=== PATIENT | female | born 1960 | race Caucasian/White ===

== ENCOUNTER 2018-06-26 11:07 | Inpatient (IN) ==
[2018-06-26] MEDS ORDERED: *HR* Remifentanil 1 MG VIAL IVP ONE ×2 (11:24→16:18)
[2018-06-26] MEDS ORDERED: *HR* Phenylephrine 10 MG/ML VIAL ONE (11:28)
[2018-06-26] MEDS ORDERED: NiCARdipine 2.5 MG/10 ML Syringe IVPB ONE (11:36)
--- NOTE | 2018-06-26 11:37 | History & Physical Report ---
Date of Encounter: 06/26/18 Time of Encounter: 11:36 24 Hour HP Update - Instructions Instructions: If the History and Physical is less than 30 days old and was completed prior to A.M. admission and or procedure and has NOT been updated on calendar day of procedure please complete this update prior to performing procedure. - Update Patient reports changes in Medical Condition: No Changes in examination, assessment, or condition: No Changes in Medication: No Preop tests/diagnostics Reviewed: Yes Surgery Remains Indicated: Yes Consent for Planned Operative Procedure(s) Verified: Yes - Pre-Operative Checklist Preoperative Checklist Indicated: Yes Prophylactic Antibiotic Ordered: Yes Home Medications Include Beta Alexsander: Yes Beta Alexsander Taken Today (Day of Surgery): Yes Beta Alexsander Taken Yesterday (Day Prior to Surgery): Yes Is VTE Prophylaxis Indicated?: Yes
--- NOTE | 2018-06-26 12:03 | Anesthesia Evaluation PreOp ---
Date of Encounter: 06/26/18 Time of Encounter: 12:01 - Past History Planned Operation: Left Carotid Endarterectomy Cardiac History: Denies any Significant Hx, HTN, Hyperlipidemia, Cardiac Stent Pulmonary History: Smoker (1/2 ppd x 20 years), Asthma, COPD Other Medical History: Hepatic (Fatty Liver), Thyroid (Hypo), Other (leukocytosis, thrombocytosis, and polycythemia.) Anesthesia History: No Prior Anesthetic Complications, Past Anesthesia (Appendectomy-open Tubal ligation 1982 Cyst-groin, Vein stripping) : No Alcohol Use: none Drug use: none Medications and Allergies Albuterol Sulfate [Albuterol Inhaler] 2 puff IH Q4HR 05/15/15 [History] Aspirin Enteric Coated [Aspirin EC] 81 mg PO DAILY 05/15/15 [History] Atorvastatin Calcium [Lipitor] 80 mg PO DAILY 05/15/15 [History] Budesonide/Formoterol 160/4.5 [Symbicort] 2 puff IH BID 05/15/15 [History] Clopidogrel [Plavix] 75 mg PO DAILY 05/15/15 [History] Levothyroxine [Synthroid] 100 mcg PO DAILY 05/15/15 [History] Metformin HCl [Fortamet] 500 mg PO Q24H 05/15/15 [History] Metoprolol Brown/Hydrochlorothiaz [Dutoprol 25-12.5 mg Tablet] 25 mg PO Q24H 05/15/15 [History] Nitroglycerin [Nitrostat] 0.4 mg SL Q5-6MIN PRN 05/15/15 [History] Omeprazole [PriLOSEC] 20 mg PO DAILY 05/15/15 [History] Acetaminophen [Tylenol] 1,000 mg PO Q6HR PRN #90 tablet 04/26/16 [Rx] Allergy/AdvReac Type Severity Reaction Status Date / Time No Known Allergies Allergy Verified 05/15/15 14:44 - Meds/Allergy Pre-op Review Medications Reviewed: Yes Allergies Reviewed: Yes Beta Blockers on Current Med List: Yes If Beta Blockers taken, Date/Time (Last Dose taken): metoprolol 25 po now Anesthesia Results - Labs Laboratory Tests 06/20/18 06/20/18 06/20/18 14:04 14:04 14:04 WBC 11.8 H Hgb 13.9 Hct 41.5 Plt Count 422 H INR 1.0 Sodium 137 Potassium 3.7 Chloride 102 Carbon Dioxide 26 BUN 16 Creatinine 0.75 06/01/17 Stress EF-70% No Ischemia Test Date: 2017-08-25 P PROCEDURES PERFORMED: SP.PFT before and after bronchodilator [pftp1] SP.PFT DLCO [pftp4] SP.PFT n2 wash out lung volume [pftp6] INTERPRETATION: Spirometry shows moderate airway restrictive disease. Following Bronchodilator, there is improvement in FVC by 10%. Following Bronchodilator, there is significant improvement in FEV1 by 12%. Increased residual Lung Volumes reveal hyperinflation and air trapping. Diffusion Capacity is normal. Flow Volume Loop: Obstructive Electronically Signed On 08-25-2017 20:52:08 EST by Mildred Kern - Imaging EKG: report reviewed (SR) Anesthesia Exam O2 Sat Height 1.5 m Height 1.5 m Weight 62.596 kg Weight 62.596 kg O2 Sat by Pulse Oximetry 93 Vital Signs Temp Pulse Resp BP Pulse Ox 98.7 F 71 18 103/55 93 06/26/18 11:38 06/26/18 11:38 06/26/18 11:38 06/26/18 11:38 06/26/18 11:38 NPO (# of Hours): > 8 hrs Pain Scale: 0 Pain Scale Used: Numeric (1 - 10) - HEENT Pupil (Motor): Pupils equal, EOMI Mallampati: III Teeth: Poor dentition Oral Opening: Greater than 3 - BUSINESS OPERATIONS CONSULTANT LOC: Oriented BUSINESS OPERATIONS CONSULTANT Motor: Normal RUE, Normal LUE, Normal RLE, Normal LLE, Normal Face BUSINESS OPERATIONS CONSULTANT Sensory: Normal: RUE, LUE, RLE, LLE, Face - Cardiac Rhythm: Regular Murmur: None JVD: No Carotid Bruit: No - Pulmonary Breath Sounds: bilateral Clear Respiratory Effort: Symmetrical Anesthesia Assess/Plan ASA Score: 3 Modified Traci Scale for Level of Consciousness: Cooperative, oriented, and tranquil Anesthetic Plan: General Autologous Blood: Yes Monitoring Plan: Standard Monitors, A-Line Recovery Plan: PACU
[2018-06-26] MEDS ORDERED: Albuterol 2.5 MG/3 ML NEBULIZER IH ONE (12:16)
[2018-06-26] MEDS ORDERED: CeFAZolin Syr 2,000MG/20 ML 2,000 MG/20 ML SYRINGE IVPB ONE (12:16)
[2018-06-26] MEDS ORDERED: Ringers Solution, Lactated 1,000 ML IVC SCH (12:30)
[2018-06-26] MEDS ORDERED: *HR* Rocuronium Bromide 50 MG/5 ML VIAL ONE (12:43)
[2018-06-26] MEDS ORDERED: *HR* Succinylcholine 200 MG/10 ML VIAL IVP ONE (12:43)
[2018-06-26] MEDS ORDERED: Lidocaine -MPF 2% 2 ML VIAL ONE (12:43)
[2018-06-26] MEDS ORDERED: Lidocaine -MPF 4% 5 ML AMPUL ONE (12:43)
[2018-06-26] MEDS ORDERED: *HR* FentaNYL (PF) 100 MCG/2 ML VIAL ONE ×2 (12:43→12:44)
[2018-06-26] MEDS ORDERED: *HR* Propofol 200 MG/20 ML VIAL IVP ONE (12:44)
[2018-06-26] MEDS ORDERED: *HR* Midazolam HCl 2 MG/2 ML VIAL ONE (12:44)
[2018-06-26] MEDS ORDERED: ceFAZolin 1,000 MG, Sodium Chloride IRRigation 1,000 ML IR ONE (12:55)
[2018-06-26] MEDS ORDERED: Heparin 1,000 UNITS/500 mL 500 ML ONE (14:07)
[2018-06-26] MEDS ORDERED: Lidocaine 1% 20 ML MDV ONE (14:07)
[2018-06-26] MEDS ORDERED: *HR* Morphine 2 MG/ML SYRINGE IVP PRN (15:12)
[2018-06-26] MEDS ORDERED: Ondansetron 4 MG/2 ML VIAL IVP ONE (15:12)
[2018-06-26] MEDS ORDERED: *HR* Meperidine 25 MG/ML SYRINGE IVP PRN (15:12)
[2018-06-26] MEDS ORDERED: *HR* OxyCODONE Immed Rel 5 MG TABLET PO PRN (15:12)
[2018-06-26] MEDS ORDERED: *HR* Promethazine 25 MG/ML VIAL IVP PRN (15:12)
--- NOTE | 2018-06-26 15:15 | Anesthesia Procedures ---
Date of Encounter: 06/26/18 Time of Encounter: 14:35 Procedures: Anesthesia - Arterial Line Consent obtained: verbal consent Time out performed: Yes Sedation: Versed (mg): 2 Sedation: Fentanyl (mcg): 50 Size (Gauge): 18 Length (inches): 1 3/4 Technique Used: sterile prep, guide wire technique Post-Procedure: line taped into place, dry sterile dressing placed Patient tolerated procedure: well, no complications Complications: none Site: Radial R
[2018-06-26] MEDS ORDERED: Ondansetron 4 MG/2 ML VIAL ONE (15:38)
[2018-06-26] MEDS ORDERED: Dexamethasone 4 MG/ML VIAL ONE (15:38)
--- NOTE | 2018-06-26 17:39 | Operative Note ---
Date of procedure: 06/26/18 Pre-op diagnosis: left carotid stenosis Post-op diagnosis: same Procedure: left carotid endarterectomy without shunt and bovine patch angioplasty Complications: none Anesthesia: GETA Surgeon: Nino Huston Was there an payroll assistant present: No Estimated blood loss (cc): 150 Specimen: 0 Condition: stable Disposition: PACU Procedure in Detail: History Imelda Phillips is a 58-year-old white female who was seen in the vascular surgery clinic due to an abnormal carotid duplex scan. This led to an angiogram which confirmed the finding of a critical stenosis of the left internal carotid artery. The patient comes to the operating room for correction of this lesion. Procedure After informed consent was obtained the patient was taken to the operating room. General endotracheal anesthesia was established. An arterial line was placed. The left neck was then sterilely prepped and draped. A timeout protocol was observed. A transverse incision was made on the left neck in a skin crease. Dissection was carried down to reveal the carotid bifurcation. Dissection was made of the vessels and selective control was obtained. 5000 it's heparin were administered intravenously. After 3 minute delay the vessels were clamped with the internal carotid artery clamped first. An 11 blade knife and Vernon scissors were used to open the artery. The artery was very dense and thick and it was difficult to cut the artery opened with the Vernon scissors. An 8 Y[place] shunt was then placed and patency was confirmed with use of intraoperative Doppler. The plaque was found to be very calcified at the orifice of the internal carotid artery. There is no finding of intramural hemorrhage. The endarterectomy was begun at the distal common carotid artery. It was then carried proximally and distally. The amount of disease present was greater than that depicted on the angiogram in the sense that it extended both proximally and distally for quite some area and required significant effort in order to remove this plaque. Because of the skin crease incision the exposure to the proximal vessel was limited. In order to safely accomplish this the shunt actually needed to be removed so that further retraction could be made and the arteriotomy was carried more proximally and the proximal clamp was also placed more proximally. With this done and appropriate end point could be found and a complete endarterectomy performed. The bed of the vessel was inspected for any residual debris. A bovine pericardial patch angioplasty was then performed. This was sewn into position using 2 6-0 Prolene sutures. Leaving a small space open on the suture line the internal carotid was allowed to backflush. The internal was then reclamped and the external and common were opened and finally the internal carotid artery was reopened. The patient had no hemodynamic distress with this maneuver. Excellent pulsation and Doppler signals were identified throughout the carotid system. Hemostasis was achieved. Marcaine was infiltrated in the wound to achieve a sup erficial cervical block. The wound was copiously irrigated with antibiotic containing solution and then closed in layers using absorbable suture. There were no intraoperative complications. The patient was extubated in the operating room. She was found to be neurologically intact. She was taken from the operating room to the recovery room in stable condition.
[2018-06-26] MEDS ORDERED: traMADol 50 MG TABLET PO PRN (18:32)
[2018-06-26] MEDS ORDERED: Ondansetron 4 MG/2 ML VIAL IVP PRN (18:32)
[2018-06-26] MEDS ORDERED: Acetaminophen 325 MG TABLET PO PRN (18:32)
[2018-06-26] MEDS ORDERED: Naloxone 0.4 MG/ML INJ IVP PRN (18:32)
[2018-06-26] MEDS ORDERED: *HR* Labetalol 20 MG/4 ML SYRINGE IVP PRN (18:32)
[2018-06-26] MEDS ORDERED: *HR* HYDROcodone/Acet 5/325 mg TABLET PO PRN (18:32)
[2018-06-26] MEDS: Budesonide/Formoterol 160/4.5 1 PUFF INH IH SCH (20:39)
[2018-06-27 03:48] LABS: Basophils % 0.2 %; Hematocrit 38.4 % (35.3-44.9); Hemoglobin 12.5 g/dL (11.5-15.4); Immature Granulocytes % 0.5 % (0-4); Lymphocytes # 1.8 K/mcL (0.6-4.6); Lymphocytes % 11.8 %; Mean Corpuscular HGB Conc 32.6 g/dL (31.6-35.5); Mean Corpuscular Hemoglobin 29.5 pg (28.0-33.3); Mean Corpuscular Volume 90.6 fL (83.0-100.0); Mean Platelet Volume 10.3 fL (9.4-12.4); Monocytes # 0.8 K/mcL (0.0-1.3); Monocytes % 5.2 %; Neutrophils # 12.8 K/mcL (1.6-8.9); Platelet Count 312 K/mcL (140-400); Red Blood Count 4.24 M/mcL (3.82-4.97); Red Cell Distribution Width 13.2 % (11.5-14.5); Segmented Neutrophils % 82.3 %
[2018-06-27 04:06] LABS: BUN/Creatinine Ratio 26 (6-26); Blood Urea Nitrogen 18 mg/dL (6-20); Carbon Dioxide 27 mEq/L (23-29); Chloride 105 mEq/L (98-107); Glucose 135 mg/dL (70-105); Osmolality,Calculated 294 (280-300); Potassium 3.9 mEq/L (3.5-5.1); Sodium 140 mEq/L (136-145); eGFR For Non-African Americans > 60 (> 60)
[2018-06-27] MEDS ORDERED: *HR* Metformin 500 MG TABLET PO SCH (09:00)
[2018-06-27] MEDS ORDERED: Lisinopril 20 MG TABLET PO SCH (09:00)
[2018-06-27] MEDS ORDERED: Metoprolol XL (24 HR) Succ 25 MG TAB.ER.24H PO SCH (09:00)
[2018-06-27] MEDS ORDERED: Aspirin 81 MG TAB.CHEW PO SCH (09:00)
[2018-06-27] MEDS: Budesonide/Formoterol 160/4.5 1 PUFF INH IH SCH (09:25)
[2018-06-27 11:18] VITALS: BP 117/44
--- NOTE | 2018-06-27 12:38 | Discharge Summary ---
Date of Encounter: 06/27/18 Time of Encounter: 12:36 - Discharge Diagnosis (1) Carotid artery stenosis Priority: Primary Status: Acute Comments: Patient was found to have asymptomatic carotid bruit. Workup revealed critical stenosis. Patient underwent left carotid endarterectomy during this hospitalization. Qualifiers: Laterality: left Qualified Code(s): I65.22 - Occlusion and stenosis of left carotid artery (2) COPD (chronic obstructive pulmonary disease) Priority: Secondary Status: Chronic Comments: Patient has chronic COPD Qualifiers: COPD type: unspecified COPD Qualified Code(s): J44.9 - Chronic obstructive pulmonary disease, unspecified (3) Type 2 diabetes mellitus Priority: Secondary Status: Chronic Comments: Patient has chronic diabetes Qualifiers: Diabetes mellitus termination clerk insulin use: without long-term use Diabetes mellitus complication status: without complication Qualified Code(s): E11.9 - Type 2 diabetes mellitus without complications - Hospital Course Hospital course: Ms. Phillips is a 58 year old female With an asymptomatic left carotid bruit. Workup revealed a critical stenosis. The patient was admitted for left carotid endarterectomy. This was performed under general endotracheal anesthesia. The patient had no periprocedural complications. The patient was felt that for discharge on the afternoon of postoperative day #1. Instructions were given in regards to her diet and medications and wound care. All questions were answered. - Time Spent with Patient Total time spent providing and/or coordinating discharge services: - Discharge Medications Prescriptions: HYDROcodone/Acet 5/325 mg [[place] 5-325 mg] 1 tab PO Q6HR PRN 7 Days #7 tablet PRN Reason: Moderate Pain Home Medications: Albuterol Sulfate [Ventolin Hfa] 2 puff IH Q4-6H PRN 06/26/18 [History] Aspirin 81 mg PO DAILY 06/26/18 [History] Budesonide/Formoterol 160/4.5 [Symbicort 160/4.5] 2 puff IH BIDR 06/26/18 [History] Chlorthalidone 12.5 mg PO DAILY 06/26/18 [History] DULoxetine [Cymbalta] 30 mg PO DAILY 06/26/18 [History] Levothyroxine [Synthroid] 88 mcg PO 0630 06/26/18 [History] Lisinopril [Zestril] 40 mg PO DAILY 06/26/18 [History] Metformin HCl [Metformin HCl ER] 1,000 mg PO QAM 06/26/18 [History] Metoprolol XL (24 HR) Succ [Toprol Xl] 25 mg PO DAILY 06/26/18 [History] Pantoprazole Sodium [Protonix] 40 mg PO DAILY 06/26/18 [History] Rosuvastatin [Crestor] 40 mg PO HS 06/26/18 [History] Tramadol HCl [Ultram] 50 mg PO BID PRN 06/26/18 [History] HYDROcodone/Acet 5/325 mg [[place] 5-325 mg] 1 tab PO Q6HR PRN 7 Days #7 tablet 06/27/18 [Rx] Allergies/Adverse Reactions: Allergy/AdvReac Type Severity Reaction Status Date / Time No Known Allergies Allergy Verified 06/26/18 12:36 Date of admission: 06/26/18 18:29 Primary care physician: Jhon Cárdenas DO Consults: None Procedure(s) Performed: Left carotid endarterectomy with bovine pericardial patch angioplasty Discharging clinician: Nino Huston Anticipated date of discharge: 06/27/18 Exam Vital Signs, Last 4 Hours Temp Pulse Resp BP Pulse Ox 06/27/18 11:15 98.7 F 77 16 117/44 98 06/27/18 09:25 18 97 General: Present: Conversant, No Apparent Distress, Well developed, Well nourished HEENT: Present: Atraumatic, Normocephaly, Trachea midline, Pupils equal Neck: Absent: JVD, Midline deformity, Tracheal deviation Cardiac: Present: Reg Rate and Rhythm, Normal S1 and S2 Lungs: Present: Normal Breath Sounds Neuro: Present: Alert and responsive, No focal deficits noted, Cranial nerves grossly intact, Motor nerves grossly intact, Sensory nerves grossly intact Vascular: Present: Normal capillary refill, Surgical incisions (Left neck incision is clean and dry. No ecchymosis. No hematoma.) Skin: Present: No rashes noted on visualized skin - Patient Status Disposition: Home, Self-Care Condition: Good Functional capacity at discharge: independent ambulation Overall status at discharge: patient is progressing back to baseline - Discharge Instructions Follow Up With: Jhon Cárdenas DO [Primary Care Provider] - 07/03/18 3:00 pm Nino Huston MD [Partnered Physician] - 07/19/18 1:30 pm Additional Instructions: Keep left neck incision dry for a total of 5 days following surgery Use ice pack on left neck for the next 2 days Using sent of spirometer for the next 2 weeks 10 times an hour while awake area after 2 weeks dispose of incentive spirometer. No driving. No lifting greater than 10 pounds. No manual labor. Patient may walk inside or outside. Patient may use stairs as tolerated. Resume usual home medications - Diet and Activity Activity: as per physical therapy, increase activity as tolerated Diet: diabetic diet
[2018-06-27] MEDS ORDERED: Chloraseptic Spray 177 ML BOTTLE MM PRN (13:00)
== END 2018-06-27 16:04 | disposition home or self-care (01) | DRG 24 ==
LOC: SAMDAY 11:07 → 2NNU 18:29
PROVIDERS: ADMIT Surgery Vascular Surgery; ATTEND Surgery Vascular Surgery

== ENCOUNTER 2019-01-02 13:25 | Observation (INO) ==
[2019-01-02 15:08] LABS: Basophils # 0.1 K/mcL (0.0-0.2); Basophils % 0.8 %; Eosinophils # 0.2 K/mcL (0.0-0.6); Eosinophils % 1.4 %; Hematocrit 45.1 % (35.3-44.9); Hemoglobin 14.7 g/dL (11.5-15.4); Immature Granulocytes % 0.6 % (0-4); Lymphocytes # 4.7 K/mcL (0.6-4.6); Lymphocytes % 35.7 %; Mean Corpuscular HGB Conc 32.6 g/dL (31.6-35.5); Mean Corpuscular Hemoglobin 29.3 pg (28.0-33.3); Mean Platelet Volume 10.4 fL (9.4-12.4); Monocytes # 1.1 K/mcL (0.0-1.3); Neutrophils # 7.1 K/mcL (1.6-8.9); Platelet Count 392 K/mcL (140-400); Red Blood Count 5.01 M/mcL (3.82-4.97); Segmented Neutrophils % 53.5 %
[2019-01-02 15:13] LABS: INR 0.9; Prothrombin Time 10.6 Seconds (9.4-12.1)
[2019-01-02 15:16] LABS: Activated Partial Thrombo Time 35.5 Seconds (26.0-36.0)
[2019-01-02] MEDS ORDERED: Nitroglycerin 0.4 MG TAB.SUBL SL PRN (15:25)
[2019-01-02] MEDS ORDERED: Aspirin 325 MG TABLET PO ONE (15:25)
--- NOTE | 2019-01-02 15:28 | Emergency Department Note ---
Disposition Clinical Impression: Hypokalemia, History of coronary artery disease, Tobacco use Chest pain Qualifiers: Chest pain type: unspecified Qualified Code(s): R07.9 - Chest pain, unspecified Disposition: Admitted As Inpatient Condition: Fair Time of Disposition: 15:55 General Adult HPI - General Chief complaint: ED Extremity Problem,Nontraumatic Stated complaint: Left arm pain x 1week Time Seen by Provider: 01/02/19 15:00 Source: patient, EMS Mode of arrival: ambulatory Limitations: no limitations Nursing Notes Reviewed: Yes Vital Signs Reviewed: Yes - History of Present Illness HPI Narrative: 58-year-old female history of hypertension, CAD with stent presents for evaluation from cardiology for concerns of left arm pain. Patient states she has had intermittent pain in the left arm that is described as squeezing. States that it feels that somebody squeezing around her chest. No nausea. No vomiting. Patient states she does have episodes of sweating which she attributed to menopause. No fevers or cough. No dyspnea. Patient states that she is in the process of getting set up for an outpatient stress test. She has not had any provocative testing since 2017. No abdominal pain. Pain Scale: 4 - Related Data Home Medications Medication Instructions Recorded Confirmed Albuterol Sulfate [Ventolin Hfa] 2 puff IH Q4-6H PRN 06/26/18 06/26/18 Aspirin 81 mg PO DAILY 06/26/18 06/26/18 Budesonide/Formoterol 160/4.5 2 puff IH BIDR 06/26/18 06/26/18 [Symbicort 160/4.5] Chlorthalidone 12.5 mg PO DAILY 06/26/18 06/26/18 DULoxetine [Cymbalta] 30 mg PO DAILY 06/26/18 06/26/18 Levothyroxine [Synthroid] 88 mcg PO 0630 06/26/18 06/26/18 Lisinopril [Zestril] 40 mg PO DAILY 06/26/18 06/26/18 Metformin HCl [Metformin ER 1,000 mg PO QAM 06/26/18 06/26/18 Gastric] Metoprolol XL (24 HR) Succ [Toprol 25 mg PO DAILY 06/26/18 06/26/18 Xl] Pantoprazole Sodium [Protonix] 40 mg PO DAILY 06/26/18 06/26/18 Rosuvastatin [Crestor] 40 mg PO HS 06/26/18 06/26/18 Tramadol HCl [Ultram] 50 mg PO BID PRN 06/26/18 06/26/18 Allergies Allergy/AdvReac Type Severity Reaction Status Date / Time No Known Allergies Allergy Verified 06/26/18 12:36 All systems ED: reviewed and negative except as stated. Constitutional: Denies: fever Cardiovascular: Reports: chest pain. Denies: palpitations Respiratory: Denies: cough, dyspnea Gastrointestinal: Denies: abdominal pain, nausea, vomiting Past Medical History - Past Medical History Source: patient Medical history: Reports: asthma, COPD, hyperlipidemia, hypertension, thyroid disease Surgical history: Reports: appendectomy, other Psychiatric history: Reports: no psych history - Social History Smoking Status: Current every day smoker Smokeless Tobacco Status: No Alcohol use: Reports: none Drug use: Reports: none Physical Exam - General Limitations: no limitations General appearance: alert, in no apparent distress - Head Head exam: atraumatic, normocephalic, normal inspection - Eye Eye exam: Present: normal appearance - ENT ENT exam: normal exam - Neck Neck exam: Present: normal inspection - Chest Chest inspection: Present: normal inspection, symmetric chest wall rise. Absent: tenderness, rash - Respiratory Respiratory exam: Present: prolonged expiratory phase. Absent: respiratory distress - Cardiovascular Cardiovascular exam: Present: regular rate, normal rhythm. Absent: normal heart sounds - Abdominal Exam Abdominal exam: Present: soft, Non-Tender - Extremities Exam Extremities exam: Present: normal inspection - Expanded Upper Extremity Exam Shoulder exam: Present: normal inspection, full ROM. Absent: tenderness Arm exam: Present: normal inspection, full ROM. Absent: tenderness Elbow exam: Present: normal inspection, full ROM. Absent: tenderness - Expanded Lower Extremity Exam Neurovascular/Tendon exam: Present: normal capillary refill - Back Exam Back exam: Present: normal inspection - Neurological Exam Neurological exam: Present: alert, oriented X3, CN II-XII intact - Skin Skin exam: Present: warm, dry, intact, normal color Course Course Narrative: Patient seen and examined. Patient will get basic cardiopulmonary screening evaluation. Concerns for ACS. Disposition pending. - Reevaluation(s) Reevaluation #1: Patient seen and examined. Patient's resting. Patient does have EKG changes based on her recent EKG. Given EKG changes with the patient's concerning history sent by the third rail installer. Patient will be admitted for serial troponins likely provocative testing. Time: 15:54 Reevaluation #2: Patient's pain improved after nitro. Time: 16:12 Vital Signs Temperature 98.5 F 01/02/19 13:33 Pulse Rate 75 01/02/19 13:33 Respiratory Rate 18 01/02/19 13:33 Blood Pressure 119/75 01/02/19 13:33 O2 Sat by Pulse Oximetry 94 01/02/19 13:33 Temperature 98.5 F 01/02/19 13:33 Pulse Rate 72 01/02/19 16:02 Respiratory Rate 16 01/02/19 16:02 Blood Pressure 99/59 01/02/19 16:02 O2 Sat by Pulse Oximetry 95 01/02/19 16:02 Oxygen Delivery Oxygen Delivery Room Air Medical Decision Making - MDM Narrative Medical decision making narrative: Patient presented for concerns of arm pain and chest pains and by cardiology. Patient had intermittent symptoms over the past week. Does have known coronary disease. Patient has had diaphoresis. Patient describing a squeezing sensation in her chest. Patient does have EKG changes based on her prior EKG. Patient does have a concerning history in is high risk. Patient's been attempting to get scheduled for outpatient provocative testing. Given the patient's symptoms over prolonged. Will admit the patient for serial troponins and anticipated provocative testing. Patient's agreeable with this plan of care. - Lab Data Lab results reviewed: Yes I reviewed the patient's lab results. Result diagrams: 01/02/19 14:19 01/02/19 14:19 Lab Results 01/02/19 01/02/19 01/02/19 Range/Units 14:19 14:19 14:19 WBC 13.2 H (4.3-11.1) K/mcL RBC 5.01 H (3.82-4.97) M/mcL Hgb 14.7 (11.5-15.4) g/dL Hct 45.1 H (35.3-44.9) % MCV 90.0 (83.0-100.0) fL MCH 29.3 (28.0-33.3) pg MCHC 32.6 (31.6-35.5) g/dL RDW 14.0 (11.5-14.5) % Plt Count 392 (140-400) K/mcL MPV 10.4 (9.4-12.4) fL Immature Gran % 0.6 (0-4) % Seg Neutrophils % 53.5 % Lymphocytes % 35.7 % Monocytes % 8.0 % Eosinophils % 1.4 % Basophils % 0.8 % Neutrophils # 7.1 (1.6-8.9) K/mcL Lymphocytes # 4.7 H (0.6-4.6) K/mcL Monocytes # 1.1 (0.0-1.3) K/mcL Eosinophils # 0.2 (0.0-0.6) K/mcL Basophils # 0.1 (0.0-0.2) K/mcL PT 10.6 (9.4-12.1) Seconds INR 0.9 APTT 35.5 (26.0-36.0) Seconds Sodium 139 (136-145) mEq/L Potassium 3.2 L (3.5-5.1) mEq/L Chloride 103 (98-107) mEq/L Carbon Dioxide 27 (23-29) mEq/L BUN 20 (6-20) mg/dL Creatinine 0.69 (0.60-1.20) mg/dL Est GFR ( Amer) > 60 (> 60) Est GFR (Non-Af Amer) > 60 (> 60) BUN/Creatinine Ratio 29 H (6-26) Glucose 95 (70-105) mg/dL Calculated Osmolality 290 (280-300) Calcium 10.0 (8.6-10.3) mg/dL Troponin I < 0.03 (< 0.04) ng/mL - Radiology Data Radiology results reviewed: Yes I reviewed the patient's radiology results. Chest X-Ray 01/02/19 13:39 IMPRESSION: No acute cardiopulmonary disease. D/ / 01/02/2019 15:39:34 Jonh Ramos MD / mario Interpreting Provider: Jonh Ramos MD - EKG Data EKG #1 EKG attestation: Yes I reviewed and interpreted this EKG. EKG shows normal: sinus rhythm Rate: normal Rhythm: NSR [place]/QRS: normal ST segment depression in: II, III, aVF T wave inversions noted in: v1, v2, v3 When compared to previous EKG there are: changes noted Interpretation: nonspecific ST-T wave changes S.Rimma - Flex Situation: Demographics Background: Presenting Complaint Assessment: Vital Signs, Course and respsone to treatment, Patient/Family Expectation Recommendation: Barrier(s) to disposition, Recommendation based on pending studies, treatments, or consults SErin Report Given to: Dr. Deandre Mccord Repor Time: 16:09 Attestation Statement - Attestation Attestation: Resident Attestation: I examined this patient and my medical decision making was reviewed with the Resident Physician. I agree with the documented findings, disposition and treatment plan as described except to the extent set forth below. We independently had [id number] contact with the patient. Patient presenting to the emergency department from cardiology for further ev aluation. Patient with left arm pain. Patient's EKG reviewed with resident physician. Leonora ng. Symptoms relieved with nitroglycerin glycerin 1. Patient did have a drop to her blood pressure. No furtherglycerin will be given. Patient be admitted for further cardiac evaluation. This complaint but, no acute distress, regular rate and rhythm, clear to auscultation bilaterally, no significant swelling to the lower extremities.
[2019-01-02 15:37] LABS: BUN/Creatinine Ratio 29 (6-26); Blood Urea Nitrogen 20 mg/dL (6-20); Carbon Dioxide 27 mEq/L (23-29); Chloride 103 mEq/L (98-107); Glucose 95 mg/dL (70-105); Osmolality,Calculated 290 (280-300); Potassium 3.2 mEq/L (3.5-5.1); Sodium 139 mEq/L (136-145); Troponin I < 0.03 ng/mL (< 0.04); eGFR For Non-African Americans > 60 (> 60)
[2019-01-02] MEDS ORDERED: 0.9 % Sodium Chloride 500 ML IVC ONE (16:13)
[2019-01-02] MEDS ORDERED: Naloxone 0.4 MG/ML INJ IVP PRN (18:11)
[2019-01-02] MEDS ORDERED: Ondansetron 4 MG/2 ML VIAL IVP PRN (18:11)
[2019-01-02] MEDS ORDERED: Acetaminophen 325 MG TABLET PO PRN (18:11)
[2019-01-02] MEDS ORDERED: *HR* HYDROcodone/Acet 5/325 mg TABLET PO PRN (18:11)
[2019-01-02] MEDS ORDERED: D5% in Water 1,000 ML IVC PRN (18:14)
[2019-01-02] MEDS ORDERED: Dextrose Gel 15 GM/37.5 ML TUBE PO PRN ×2 (18:14)
[2019-01-02] MEDS ORDERED: *HR* Dextrose 50 % in Water (Syg) 50 ML SYRINGE IVP PRN (18:14)
--- NOTE | 2019-01-02 18:20 | Internal Med History&Physical ---
Date of Encounter: 01/02/19 Time of Encounter: 18:20 Internal Medicine - H&P: HPI Chief complaint: cp Admitted From: Emergency Dept Plans for Post Hospital Care: Home History of present illness: Ms. Phillips is a 58 year old female astragal history of hypertension CAD with stent placement 2013 LAD hyperlipidemia hypertension current smoker thyroid disease COPD left CEA in 2018 patient has been experiencing intermittent left arm squeezing for the past few days pain does radiate to her left chest. No shortness of breath no nausea no vomiting however she has been experiencing episodes of diaphoresis which she attributed to her menopause. She states that she does have a outpatient stress test scheduled and did see her primary care provider today who obtained EKG and was concerned advised her to go to the ER. The ER EKG was obtained which did show some ST depression in II, III, and F aVF. Patient was given nitroglycerin which did reduce her arm discomfort. Initial troponin was negative chest x-ray nothing acute lab work does show some hypokalemia which was replaced. She has been admitted for further work be evaluation of chest pain. Upon assessment patient continues to complain of 4 out of 10 arm squeezing. Patient obese started on heparin drip as well as nitroglycerin to control pain. Discussed treatment plan with the patient . Cardiology was consulted Past Med Surg Social Fam HX - Past Medical History Medical history: asthma, COPD, hyperlipidemia, hypertension, thyroid disease Additional medical history: CAD Psychiatric history: no psych history - Past Surgical History Surgical History: appendectomy, other Additional surgical history: heart stent 2014 x1. tubal ligation - Social History Smoking Status: Current every day smoker Smokeless Tobacco Status: No Alcohol use: none Drug use: none - Family History Mother Living Status: Age at : 62 Cause of : CAD status post CABG 2 days after CABG diagnosed in 50s Hx Family Cardiac Disorders: Yes Father Living Status: Age at : 65 Cause of : [place] CAD status post PCI Hx Family Cardiac Disorders: Yes Internal Medicine - H&P: Meds Albuterol Sulfate [Ventolin Hfa] 2 puff IH Q4-6H PRN 06/26/18 [History] Aspirin 81 mg PO DAILY 06/26/18 [History] Budesonide/Formoterol 160/4.5 [Symbicort 160/4.5] 2 puff IH BIDR 06/26/18 [History] Chlorthalidone 12.5 mg PO DAILY 06/26/18 [History] DULoxetine [Cymbalta] 30 mg PO DAILY 06/26/18 [History] Levothyroxine [Synthroid] 88 mcg PO 0630 06/26/18 [History] Lisinopril [Zestril] 40 mg PO DAILY 06/26/18 [History] Metformin HCl [Metformin ER Gastric] 1,000 mg PO QAM 06/26/18 [History] Metoprolol XL (24 HR) Succ [Toprol Xl] 25 mg PO DAILY 06/26/18 [History] Pantoprazole Sodium [Protonix] 40 mg PO DAILY 06/26/18 [History] Rosuvastatin [Crestor] 40 mg PO HS 06/26/18 [History] Tramadol HCl [Ultram] 50 mg PO BID PRN 06/26/18 [History] Allergy/AdvReac Type Severity Reaction Status Date / Time No Known Allergies Allergy Verified 06/26/18 12:36 All Systems PM: A 10-system review of systems was performed and is negative for pertinent findings except as documented above in the HPI. - Constitutional Constitutional: excessive sweating, no chills, no fever(s), no night sweats - EENT Eyes: no change in vision, no discharge, no pain, no photophobia Ears: no ear discharge, no ear pain, no tinnitus Nose, mouth and throat: no dysphagia, no nasal discharge, no neck pain, no sore throat - Cardiovascular Cardiovascular ROS IM: no chest pain, no diaphoresis, no dyspnea, no lightheadedness, no palpitations, no syncope Additional comments: Left arm squeezing - Respiratory Respiratory: no cough, no dyspnea, no wheezing, no excessive phlegm production - Gastrointestinal Gastrointestinal: no abdominal pain, no diarrhea, no hematemesis, no hematochezia, no melena, no nausea, no vomiting - Genitourinary Genitourinary: no change in urinary stream, no dysuria, no flank pain, no hematuria - Musculoskeletal Musculoskeletal ROS IM: no numbness, no tingling - Integumentary Integumentary IM: no rash, no unusual bruising - Neurological Neurological ROS: no confusion, no convulsions, no focal weakness, no numbness, no tingling, no tremor(s) - Hematologic/Lymphatic Hematologic/Lymphatic: no easy bruising - Constitutional Vitals: Temp Pulse Resp BP Pulse Ox 97.9 F 66 16 111/59 94 01/02/19 18:03 01/02/19 18:03 01/02/19 18:03 01/02/19 18:03 01/02/19 18:03 General appearance: Present: A&O X 3 Exam: . - Head Head exam: Present: atraumatic, normocephalic - Eye Eye exam: Present: PERRL, conjuntiva pink, sclera anicteric Pupils: Present: PERRL - Neck Neck exam general surgery: Present: supple, trachea midline. Absent: lymphadenopathy - Respiratory Respiratory exam: Present: CTAB, wheezes. Absent: accessory muscle use, rales, rhonchi Additional comments: Faint expiratory wheeze - Cardiovascular Cardiovascular exam: Present: RRR, +S1, +S2. Absent: diastolic murmur, gallop, rubs, systolic murmur - GI/Abdominal GI/Abdominal exam: Present: normal bowel sounds, soft, no peritoneal signs. Absent: distended, tenderness - Extremities Exam Extremities exam: Present: warm, radial pulses palpable and symmetrical. Absent: calf tenderness, cyanotic, pedal edema - Neurological Exam Neurological exam: Present: CN II-XII intact, oriented X3, no focal deficits. Absent: pronater drift, facial droop, speech deficit - Skin Skin exam: Present: dry, intact Internal Med - H&P Results - Labs CBC & Chem 7: 01/02/19 14:19 01/02/19 14:19 Labs: Short CBC 01/02/19 Range/Units 14:19 WBC 13.2 H (4.3-11.1) K/mcL Hgb 14.7 (11.5-15.4) g/dL Hct 45.1 H (35.3-44.9) % Plt Count 392 (140-400) K/mcL Neutrophils # 7.1 (1.6-8.9) K/mcL BMP 01/02/19 14:19 Sodium 139 Potassium 3.2 L Chloride 103 Carbon Dioxide 27 BUN 20 Creatinine 0.69 Glucose 95 Calcium 10.0 Cardiac Enzymes 01/02/19 Range/Units 14:19 Troponin I < 0.03 (< 0.04) ng/mL - EKG Data EKG shows normal: sinus rhythm - EKG Data Prior EKG available for review: yes When compared to previous EKG: there are significant changes Interpretation IM: suggestive of ischemia - Impressions ITS Impressions Chest X-Ray 01/02/19 13:39 IMPRESSION: No acute cardiopulmonary disease. D/ / 01/02/2019 15:39:34 Jonh Ramos MD / mario Interpreting Provider: Jonh Ramos MD - Assessment and Plan (1) Chest pain Current Visit: Yes Status: Acute Assessment and plan: Patient presented with 2 day history of left arm pain radiating to left chest associated symptoms of diaphoresis. Past history of CAD stent placement LAD- current smoker-family history of CAD mother post CABG, father from [place] both in their 60s -EKG does show some ST depression in 2- 3 aVF-she did have some relief of pain with nitroglycerin Initial troponin was negative we will continue to trend Continuous cardiac monitoring EKG in a.m. Continue aspirin and statin beta kike We will start on heparin drip Started on nitro drip Consult cardiology Nothing by mouth after midnight Cardiac echo Qualifiers: Chest pain type: unspecified Qualified Code(s): R07.9 - Chest pain, unspecified (2) History of coronary artery disease Current Visit: Yes Status: Acute (3) Hypokalemia Current Visit: Yes Status: Acute Assessment and plan: Replace and monitor (4) Tobacco use Current Visit: Yes Status: Acute Assessment and plan: Advised patient to stop smoking (5) Carotid artery stenosis Current Visit: No Status: Acute Assessment and plan: History of carotid stenosis did have a left CEA in June 2018 Continue with aspirin Qualifiers: Laterality: left Qualified Code(s): I65.22 - Occlusion and stenosis of left carotid artery (6) COPD (chronic obstructive pulmonary disease) Current Visit: No Status: Chronic Assessment and plan: Is not. Be in any exacerbation we will continue with bronchodilators she is on Spiriva as Symbicort Ventolin Qualifiers: COPD type: unspecified COPD Qualified Code(s): J44.9 - Chronic obstructive pulmonary disease, unspecified - Time Spent With Patient Total time spent is greater than 50% in coordination of care (as documented) at patient's floor/unit and/or counseling patient:
[2019-01-02] MEDS ORDERED: Albuterol 2.5 MG/3 ML NEBULIZER IH PRN (18:21)
[2019-01-02] MEDS ORDERED: *HR* Heparin 5,000 UNIT/ML VIAL IVP ONE (18:37)
[2019-01-02] MEDS ORDERED: *HR* Heparin 5,000 UNIT/ML VIAL IVP PRN ×2 (18:37)
[2019-01-02] MEDS ORDERED: Heparin 25,000 UNIT/250 ML D5W 25,000 UNIT/250 ML IV.SOLN IVC SCH (18:45)
[2019-01-02] MEDS ORDERED: Nitroglycerin 25 MG/250 ML INFUS..BTL IVC SCH (18:45)
[2019-01-02 19:34] LABS: Heparin anti-factor XA UFH 0.05 IU/mL (0.30-0.70)
[2019-01-02] MEDS: 0.9 % Sodium Chloride 1,000 ML IVC SCH (20:29)
[2019-01-02 20:44] LABS: Estimated Average Glucose 131 mg/dl; Hemoglobin A1C 6.2 %
[2019-01-02] MEDS ORDERED: Insulin LISPRO 300 UNITS/3 ML VIAL SQ SCH (21:00)
[2019-01-02] MEDS ORDERED: Perflutren Lipid Microsphere 1.3 ML in 0.9 % Sodium Chloride 8.7 ML IVP ONE (21:15)
[2019-01-02] MEDS: Budesonide/Formoterol 160/4.5 1 PUFF INH IH SCH (21:18)
[2019-01-03 03:45] LABS: Basophils # 0.1 K/mcL (0.0-0.2); Basophils % 0.9 %; Eosinophils # 0.3 K/mcL (0.0-0.6); Eosinophils % 2.5 %; Hematocrit 42.5 % (35.3-44.9); Hemoglobin 13.7 g/dL (11.5-15.4); Immature Granulocytes % 0.5 % (0-4); Lymphocytes # 4.8 K/mcL (0.6-4.6); Lymphocytes % 40.6 %; Mean Corpuscular HGB Conc 32.2 g/dL (31.6-35.5); Mean Corpuscular Hemoglobin 29.5 pg (28.0-33.3); Mean Corpuscular Volume 91.6 fL (83.0-100.0); Mean Platelet Volume 10.6 fL (9.4-12.4); Monocytes % 8.5 %; Neutrophils # 5.6 K/mcL (1.6-8.9); Platelet Count 339 K/mcL (140-400); Red Blood Count 4.64 M/mcL (3.82-4.97); Red Cell Distribution Width 14.2 % (11.5-14.5)
[2019-01-03 04:05] LABS: BUN/Creatinine Ratio 22 (6-26); Blood Urea Nitrogen 17 mg/dL (6-20); Calcium 9.4 mg/dL (8.6-10.3); Carbon Dioxide 27 mEq/L (23-29); Chloride 106 mEq/L (98-107); Chol/HDL Ratio 3.7 (0-4.9); Cholesterol 158 mg/dL (< 200); Glucose 106 mg/dL (70-105); HDL Cholesterol 43 mg/dL (40-59); LDL Cholesterol,Calculated 46 mg/dL (0-99); Magnesium 2.1 mg/dL (1.6-2.6); Osmolality,Calculated 292 (280-300); Potassium 3.6 mEq/L (3.5-5.1); Sodium 140 mEq/L (136-145); Triglycerides 343 mg/dL (< 150); eGFR For Non-African Americans > 60 (> 60)
[2019-01-03] MEDS: 0.9 % Sodium Chloride 1,000 ML IVC SCH (06:27)
--- NOTE | 2019-01-03 08:43 | Electrocardiograph Report ---
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
[2019-01-03] MEDS ORDERED: Metoprolol XL (24 HR) Succ 25 MG TAB.ER.24H PO SCH (09:00)
[2019-01-03] MEDS ORDERED: Aspirin 81 MG TAB.CHEW PO SCH (09:00)
[2019-01-03] MEDS ORDERED: Regadenoson 0.4 MG/5 ML SYRINGE IVP ONE (09:46)
[2019-01-03] MEDS ORDERED: Tiotropium 18 MCG inhalation IH SCH (10:00)
[2019-01-03] MEDS: Budesonide/Formoterol 160/4.5 1 PUFF INH IH SCH (10:11)
--- NOTE | 2019-01-03 10:39 | Cardiology Consult Note ---
<Bienvenido Koehler Julio - Last Filed: 01/03/19 10:36> Date of Encounter: 01/03/19 Time of Encounter: 10:36 Assessment and Plan (1) Chest pain Current Visit: Yes Status: Acute Has been experiencing constant left arm squeezing for the past few days radiating to left chest. EKG with mild diffuse ST depression. Nitro improved pain. Troponins negative x 3. Will stop heparin gtt. TTE completed--LVEF 65%. Normal LV chamber size, wall thickness and function. Mild LVDD. Normal RV structure and function. No evidence of phtn. No significant valvular dysfunction. Negative stress test 05/2017. Nuclear stress test was already ordered by primary team. Discussed and reviewed with Dr. Osorio. Proceed with stress test. Further recs pending results. Qualifiers: Chest pain type: unspecified Qualified Code(s): R07.9 - Chest pain, unspecified (2) CAD (coronary artery disease) Current Visit: Yes Status: Acute CAD s/p PCI 2013 LAD. Continue ASA, Statin, BB. Qualifiers: Coronary Disease-Associated Artery/Lesion type: sy[place]uan artery [place] vs. transplanted heart: sycuan heart Associated angina: angina presence unspecified Qualified Code(s): I25.10 - Atherosclerotic heart disease of syc[place] coronary artery without angina pectoris Discussion w patient/family: The assessment and plan as outlined above was discussed with the patient and/or family members who expressed understanding and agreement. All questions were answered. Thank you for involving us in the care of your patient. Please call with any questions. I will discuss all the above with Dr. Osorio and make changes as necessary. History of Present Illness Consult date: 01/03/19 Consult reason: Chest pain Chief complaint: chest pain History of present illness: Ms. Phillips is a 58 year old female with PMH of HTN, CAD s/p PCI 2013 LAD HLD, HTN, tobacco abuse, thyroid disease COPD left CEA in 2018 patient has been experiencing constant left arm squeezing for the past few days pain does radiate to her left chest. She had and outpatient stress test scheduled and saw her PCP today who obtained EKG and was concerned advised her to go to the ER. EKG with mild diffuse ST depression. Nitro improved pain. Troponins negative x 3. Cardiology consulted for further recs. TTE completed--LVEF 65%. Normal LV c hamber size, wall thickness and function. Mild LVDD. Normal RV structure and function. No evidence of phtn. No significant valvular dysfunction. Negative stress test 05/2017. Past Med Surg Social Fam HX - Past Medical History Medical history: asthma, COPD, coronary artery disease, hyperlipidemia, hypertension, thyroid disease Additional medical history: CAD Psychiatric history: no psych history - Past Surgical History Surgical History: appendectomy, other Additional surgical history: heart stent 2014 x1. tubal ligation - Social History Smoking Status: Current every day smoker Smokeless Tobacco Status: No Alcohol use: none Drug use: none - Family History Mother Living Status: Age at : 62 Cause of : CAD status post CABG 2 days after CABG diagnosed in 50s Hx Family Cardiac Disorders: Yes Father Living Status: Age at : 65 Cause of : [place] CAD status post PCI Hx Family Cardiac Disorders: Yes Medications and Allergies Albuterol Sulfate [Ventolin Hfa] 2 puff IH Q4-6H PRN 06/26/18 [History] Aspirin 81 mg PO DAILY 06/26/18 [History] Budesonide/Formoterol 160/4.5 [Symbicort 160/4.5] 2 puff IH BIDR 06/26/18 [History] Chlorthalidone 12.5 mg PO DAILY 06/26/18 [History] DULoxetine [Cymbalta] 30 mg PO DAILY 06/26/18 [History] Lisinopril [Zestril] 40 mg PO DAILY 06/26/18 [History] Metoprolol XL (24 HR) Succ [Toprol Xl] 25 mg PO DAILY 06/26/18 [History] Pantoprazole Sodium [Protonix] 40 mg PO DAILY 06/26/18 [History] Rosuvastatin [Crestor] 40 mg PO HS 06/26/18 [History] Tramadol HCl [Ultram] 50 mg PO BID PRN 06/26/18 [History] Levothyroxine Sodium [Levo-T] 75 mcg PO QAM 01/03/19 [History] Metformin HCl [Fortamet] 500 mg PO DAILY 01/03/19 [History] Tiotropium [Spiriva] 18 mcg IH DAILY 01/03/19 [History] Allergy/AdvReac Type Severity Reaction Status Date / Time No Known Allergies Allergy Verified 01/03/19 14:19 All Systems Review: The remainder of the systems were reviewed and are negative - Cardiovascular Cardiovascular: as per HPI, chest pain at rest, chest pain with exertion, radiating jaw, neck or arm pain Physical Examination Vital Signs Temp Pulse Resp BP Pulse Ox 01/03/19 03:21 98.0 F 73 16 119/68 93 01/02/19 22:53 98.3 F 64 16 98/62 92 01/02/19 21:21 16 91 01/02/19 18:03 97.9 F 66 16 111/59 94 01/02/19 17:07 16 111/59 01/02/19 16:02 72 16 99/59 95 01/02/19 13:33 98.5 F 75 18 119/75 94 Intake and Output 01/02/19 01/03/19 01/03/19 23:59 07:59 15:59 Intake Total 500 / 500 1056 / 1056 Balance 500 / 500 1056 / 1056 Intake: IV Fluids 500 / 500 1056 / 1056 0.9 % Sodium Chloride 1,000 ML 1000 / 1000 @ 100 mls/hr IVC .Q10H [facility] Rx#: [id number] 0.9 % Sodium Chloride 500 ML @ 500 / 500 999 mls/hr IVC .Q31M ONE Rx#: [id number] Heparin 25,000 UNIT/250 ML D5W 56 / 56 25,000 unit In 250 ml @ 12 UNIT /KG/HR 8.165 mls/hr IVC .Q24H [facility] Rx#:[id number] Other: Weight 72.7 kg Blood Glucose* 117 Patient Weight 01/03/19 23:59 Weight 72.7 kg General: Conversant, No Apparent Distress HEENT: Atraumatic, Normocephaly, Mucus Membranes Moist Neck: No JVD, Normal carotid pulses Cardiac: Reg Rate and Rhythm, Normal S1 and S2, No Murmur Lungs: Normal Breath Sounds, No Wheeze, Rales, Rhonchi Neuro: Alert and responsive, No focal deficits noted Abdomen: Soft, Non-Tender Skin: No rashes noted on visualized skin Musculoskeletal: No Chest Wall Tenderness Extremities: No Clubbing, No Cyanosis, No Edema, Normal Pulses Results 01/03/19 03:15 01/03/19 03:15 Lab Results 01/02/19 01/02/19 01/02/19 14:19 14:19 14:19 WBC 13.2 H Hgb 14.7 Hct 45.1 H Plt Count 392 INR 0.9 APTT 35.5 Sodium 139 Potassium 3.2 L Chloride 103 Carbon Dioxide 27 BUN 20 Creatinine 0.69 Glucose 95 Calcium 10.0 Magnesium Troponin I < 0.03 TSH 01/02/19 01/02/19 01/02/19 19:13 19:13 20:19 WBC Hgb Hct Plt Count INR 1.0 APTT 34.4 Sodium Potassium Chloride Carbon Dioxide BUN Creatinine Glucose Calcium Magnesium Troponin I < 0.03 TSH 01/03/19 01/03/19 01/03/19 03:15 03:15 03:15 WBC 11.8 H Hgb 13.7 Hct 42.5 Plt Count 339 INR APTT Sodium 140 Potassium 3.6 Chloride 106 Carbon Dioxide 27 BUN 17 Creatinine 0.78 Glucose 106 H Calcium 9.4 Magnesium 2.1 Troponin I < 0.03 TSH 4.520 Short CBC 01/03/19 01/02/19 Range/Units 03:15 14:19 WBC 11.8 H 13.2 H (4.3-11.1) K/mcL Hgb 13.7 14.7 (11.5-15.4) g/dL Hct 42.5 45.1 H (35.3-44.9) % Plt Count 339 392 (140-400) K/mcL Neutrophils # 5.6 7.1 (1.6-8.9) K/mcL BMP 01/03/19 01/02/19 Range/Units 03:15 14:19 Sodium 140 139 (136-145) mEq/L Potassium 3.6 3.2 L (3.5-5.1) mEq/L Chloride 106 103 (98-107) mEq/L Carbon Dioxide 27 27 (23-29) mEq/L BUN 17 20 (6-20) mg/dL Creatinine 0.78 0.69 (0.60-1.20) mg/dL Glucose 106 H 95 (70-105) mg/dL Calcium 9.4 10.0 (8.6-10.3) mg/dL Cardiac Enzymes 01/03/19 01/02/19 01/02/19 Range/Units 03:15 20:19 14:19 Troponin I < 0.03 < 0.03 < 0.03 (< 0.04) ng/mL Impressions Chest X-Ray 01/02/19 13:39 IMPRESSION: No acute cardiopulmonary disease. D/ / 01/02/2019 15:39:34 Jonh Ramos MD / mario Interpreting Provider: Jonh Ramos MD Echocardiogram 01/02/19 18:19 Impressions: LVEF 65%. Normal LV chamber size, wall thickness and function. Mild left ventricular diastolic dysfunction. Normal right ventricular structure and function. No evidence of pulmonary hypertension. No significant valvular dysfunction. Left Ventricular Wall Motion: Rest Echo Findings All wall segments showed normal motion. Findings: Study Quality * Technically adequate exam. ECG Findings * Normal sinus rhythm. Left Ventricle * LVEF 65%. * Normal LV chamber size, wall thickness and function. * Mild left ventricular diastolic dysfunction. Right Ventricle * Normal right ventricular structure and function. Left Atrium * Mildly dilated left atrium. Right Atrium * Normal right atrial size. Aortic Valve * Aortic valve not well visualized. * Trace aortic regurgitation. * No aortic stenosis. Mitral Valve * Normal mitral valve structure and function. * No mitral regurgitation. * No mitral stenosis. Tricuspid Valve * Normal tricuspid valve structure and function. * Trace tricuspid regurgitation. * No evidence of pulmonary hypertension. Pulmonic Valve * Pulmonic valve is not well visualized. Aorta * Normally sized aortic root. Pericardium * The pericardium appears normal. IVC * Normal IVC dimensions and inspiratory collapse. Pulmonary Artery * Pulmonary artery not well visualized. Active Medications Acetaminophen (Tylenol) 650 mg PO Q6HR PRN PRN Reason: Mild Pain/Fever Stop: 07/04/19 18:12 Hydrocodone Bitart/Acetaminophen (Gary 5-325 Mg) 1 tab PO Q6HR PRN PRN Reason: Moderate Pain Stop: 07/04/19 18:12 Albuterol Sulfate (Proventil Neb) 2.5 mg IH Q2H PRN PRN Reason: Shortness Of Breath/Wheezing Stop: 07/04/19 18:22 Aspirin (Aspirin) 81 mg PO DAILY [facility] Stop: 07/05/19 09:01 Budesonide/Formoterol Fumarate (Symbicort) 2 puff IH BIDR [facility]; Protocol Stop: 07/04/19 22:01 Last Admin: 01/03/19 10:11 Dose: Not Given Documented by: Dextrose/Water (Dextrose 50% (Syg)) 25 ml IVP AD PRN PRN Reason: Hypoglycemia Stop: 07/04/19 18:15 Glucagon (Glucagen) 1 mg IM ONCE PRN PRN Reason: Hypoglycemia Stop: 07/04/19 18:15 Glucose (Gluctose) 15 gm PO ONCE PRN PRN Reason: Hypoglycemia Stop: 07/04/19 18:15 Glucose (Gluctose) 30 gm PO ONCE PRN PRN Reason: Hypoglycemia Stop: 07/04/19 18:15 Heparin Sodium (Porcine) (Heparin) 4,000 unit IVP Q6HR PRN PRN Reason: SEE COMMENTS Stop: 07/04/19 18:38 Heparin Sodium (Porcine) (Heparin) 2,000 unit 30 unit/kg (2000 unit) IVP Q6H PRN PRN Reason: SEE COMMENTS Stop: 07/04/19 18:38 Dextrose (Dextrose 5%) 1,000 mls @ 100 mls/hr IVC .Q10H PRN PRN Reason: HYPOGLYCEMIA Stop: 07/04/19 18:15 Heparin Sodium/Dextrose (Heparin 25,000 Unit/250 Ml D5w) 25,000 unit in 250 mls @ 8.165 mls/hr IVC .Q24H [facility]; Protocol Stop: 07/04/19 18:46 Last Titration: 01/03/19 03:54 Dose: 12 unit/kg/hr, 8.2 mls/hr Documented by: Nitroglycerin (Nitroglycerin Premix 25 Mg/250 Ml) 25 mg in 250 mls @ 3 mls/hr IVC .Q24H [facility]; Protocol Stop: 07/04/19 18:46 Last Admin: 01/03/19 07:25 Dose: Not Given Documented by: Sodium Chloride (0.9 % Sodium Chloride) 1,000 mls @ 100 mls/hr IVC .Q10H [facility] Stop: 01/03/19 14:59 Last Admin: 01/03/19 06:27 Dose: 100 mls/hr Documented by: Insulin Human Lispro (Humalog) 0 units SQ HS [facility]; Protocol Stop: 07/04/19 21:01 Last Admin: 01/02/19 20:41 Dose: Not Given Documented by: Insulin Human Lispro (Humalog) 0 units SQ TIDAC [facility]; Protocol Stop: 07/05/19 07:31 Levothyroxine Sodium (Synthroid) 88 mcg PO DAILY@0630 [facility] Stop: 07/05/19 06:31 Last Admin: 01/03/19 05:48 Dose: 88 mcg Documented by: Metoprolol Succinate (Toprol Xl) 25 mg PO DAILY [facility] Stop: 07/05/19 09:01 Naloxone HCl (Narcan) 0.4 mg IVP Q2MPRN PRN PRN Reason: SEE COMMENTS Stop: 07/04/19 18:12 Nitroglycerin (Nitroglycerin) 0.4 mg SL Q5MI PRN PRN Reason: Chest Pain Stop: 07/04/19 15:26 Last Admin: 01/02/19 15:57 Dose: 0.4 mg Documented by: Omeprazole (Prilosec) 40 mg PO DAILY@0630 [facility]; Protocol Stop: 07/05/19 06:31 Last Admin: 01/03/19 05:48 Dose: 40 mg Documented by: Ondansetron HCl (Zofran) 4 mg IVP Q8HR PRN PRN Reason: Nausea And Vomiting Stop: 07/04/19 18:12 Rosuvastatin Calcium (Crestor) 40 mg PO HS [facility] Stop: 07/04/19 21:01 Last Admin: 01/02/19 20:30 Dose: 40 mg Documented by: Tiotropium [place] (Spiriva) 18 mcg IH DAILYR [facility] Stop: 07/05/19 10:01 Last Admin: 01/03/19 10:11 Dose: Not Given Documented by: - Imaging and Cardiology Stress Test: report reviewed Echo: report reviewed - EKG Interpretation EKG results cardiology: personally reviewed Consult Discharge Plan - Plan Referrals: Jhon Cárdenas DO [Primary Care Provider] - <JoTuesday A - Last Filed: 01/03/19 14:26> Date of Encounter: 01/03/19 - Attending Attestation I have personally performed a face to face evaluation on this patient. I have reviewed and agree with the documented findings and care plan as documented by the [facility] KAY MACHINE OPERATOR. History and Exam by me shows: 58 y/o pleasant female current smoker, with history of HTN, CAD presented with atypical chest pain AAOX3 in NAD at the bedside Hemodynamically stable Cardiopulmonary exam revealed S1, S2, no murmur; clear lungs Rhythm reviewed - sinus rhythm, no acute ST T changes Echo preserved EF, no significant valvular heart disease Impression/plan: Atypical chest pain/ CAD-stress test negative for ischemia. Add Imdur. Continue aspirin 81mg daily, B kike, high intensity statin. Needs to quit smoking. Thanks, Carlos Osorio MD FAC Assessment and Plan Discussion w patient/family: The assessment and plan as outlined above was discussed with the patient and/or family members who expressed understanding and agreement. All questions were answered. Thank you for involving us in the care of your patient. Please call with any questions. History of Present Illness History of present illness: Ms. Phillips is a 58 year old female All Systems Review: The remainder of the systems were reviewed and are negative Physical Examination Vital Signs, Last 4 Hours Temp Pulse Resp BP Pulse Ox 01/03/19 11:24 98.4 F 62 16 107/59 94 01/03/19 11:20 94 Results 01/03/19 03:15 01/03/19 03:15 Lab Results 01/02/19 01/02/19 01/02/19 14:19 14:19 14:19 WBC 13.2 H Hgb 14.7 Hct 45.1 H Plt Count 392 INR 0.9 APTT 35.5 Sodium 139 Potassium 3.2 L Chloride 103 Carbon Dioxide 27 BUN 20 Creatinine 0.69 Glucose 95 Calcium 10.0 Magnesium Troponin I < 0.03 TSH 01/02/19 01/02/19 01/02/19 19:13 19:13 20:19 WBC Hgb Hct Plt Count INR 1.0 APTT 34.4 Sodium Potassium Chloride Carbon Dioxide BUN Creatinine Glucose Calcium Magnesium Troponin I < 0.03 TSH 01/03/19 01/03/19 01/03/19 03:15 03:15 03:15 WBC 11.8 H Hgb 13.7 Hct 42.5 Plt Count 339 INR APTT Sodium 140 Potassium 3.6 Chloride 106 Carbon Dioxide 27 BUN 17 Creatinine 0.78 Glucose 106 H Calcium 9.4 Magnesium 2.1 Troponin I < 0.03 TSH 4.520
[2019-01-03] MEDS: Insulin LISPRO 300 UNITS/3 ML VIAL SQ SCH ×2 (11:00→11:31)
--- NOTE | 2019-01-03 11:40 | Internal Med Progress Note ---
Hospitalist Progress Note - Encounter Date of Encounter: 01/03/19 Time of Encounter: 11:38 - Subjective Interval History: Patient seen and examined in the room. She is chest pain-free currently. - Exam Vitals: Temp Pulse Resp BP Pulse Ox 98.4 F 62 16 107/59 94 01/03/19 11:24 01/03/19 11:24 01/03/19 11:24 01/03/19 11:24 01/03/19 11:24 Exam: PHYSICAL EXAMINATION: GENERAL APPEARANCE: The patient is alert, oriented and in no acute distress. HEENT: Head is normocephalic. The sinuses are nontender. Pupils are equal and reactive. The nares are patent. Oropharynx clear without lesions. NECK: Supple without lymphadenopathy. HEART: Regular rate and rhythm. LUNGS: No crackles or wheezes are heard. ABDOMEN: Soft, nontender, nondistended with good bowel sounds heard. Inguinal area is normal. EXTREMITIES: Without cyanosis, clubbing or edema. NEUROLOGICAL: Gross nonfocal. SKIN: Warm and dry without any rash. - Assessment and Plan (1) Chest pain Current Visit: Yes Status: Acute Assessment and Plan: Patient presented with 2 day history of left arm pain radiating to left chest associated symptoms of diaphoresis. Past history of CAD stent placement LAD- current smoker-family history of CAD mother post CABG, father from [place] both in their 60s EKG does show some ST depression in 2- 3 aVF-she did have some relief of pain with nitroglycerin. Echocardiogram showed preserved ejection fraction, mild LV DD, no obvious valvular disease. Pending stress nuclear test. Cardiology following, appreciate help. (2) Carotid artery stenosis Current Visit: No Status: Acute Assessment and Plan: History of carotid stenosis did have a left CEA in June 2018 Continue with aspirin (3) COPD (chronic obstructive pulmonary disease) Current Visit: No Status: Chronic Assessment and Plan: No respiratory distress currently, continue with bronchodilators she is on Spiriva as Symbicort Ventolin (4) Hypokalemia Current Visit: Yes Status: Resolved (5) History of coronary artery disease Current Visit: No Status: Chronic Assessment and Plan: Cardiology following, appreciate help. (6) Tobacco use Current Visit: No Status: Chronic Assessment and Plan: Advised patient to stop smoking - Time Spent with Patient Total time spent is greater than 50% in coordination of care (as documented) at patient's floor/unit and/or counseling patient: Greater than 35 minutes Plan of Care Discussed with: patient Internal Medicine: Result - Labs CBC & Chem 7: 01/03/19 03:15 01/03/19 03:15 Labs: Short CBC 01/02/19 01/03/19 Range/Units 14:19 03:15 WBC 13.2 H 11.8 H (4.3-11.1) K/mcL Hgb 14.7 13.7 (11.5-15.4) g/dL Hct 45.1 H 42.5 (35.3-44.9) % Plt Count 392 339 (140-400) K/mcL Neutrophils # 7.1 5.6 (1.6-8.9) K/mcL BMP 01/02/19 01/03/19 14:19 03:15 Sodium 139 140 Potassium 3.2 L 3.6 Chloride 103 106 Carbon Dioxide 27 27 BUN 20 17 Creatinine 0.69 0.78 Glucose 95 106 H Calcium 10.0 9.4 Cardiac Enzymes 01/02/19 01/02/19 01/03/19 Range/Units 14:19 20:19 03:15 Troponin I < 0.03 < 0.03 < 0.03 (< 0.04) ng/mL - ABG Interpretation ABG results: PT/INR, D-dimer PT 11.0 Seconds (9.4-12.1) 01/02/19 19:13 - Impressions Impressions Chest X-Ray 01/02/19 13:39 IMPRESSION: No acute cardiopulmonary disease. D/ / 01/02/2019 15:39:34 Jonh Ramos MD / mario Interpreting Provider: Jonh Ramos MD Echocardiogram 01/02/19 18:19 Impressions: LVEF 65%. Normal LV chamber size, wall thickness and function. Mild left ventricular diastolic dysfunction. Normal right ventricular structure and function. No evidence of pulmonary hypertension. No significant valvular dysfunction. Left Ventricular Wall Motion: Rest Echo Findings All wall segments showed normal motion. Findings: Study Quality * Technically adequate exam. ECG Findings * Normal sinus rhythm. Left Ventricle * LVEF 65%. * Normal LV chamber size, wall thickness and function. * Mild left ventricular diastolic dysfunction. Right Ventricle * Normal right ventricular structure and function. Left Atrium * Mildly dilated left atrium. Right Atrium * Normal right atrial size. Aortic Valve * Aortic valve not well visualized. * Trace aortic regurgitation. * No aortic stenosis. Mitral Valve * Normal mitral valve structure and function. * No mitral regurgitation. * No mitral stenosis. Tricuspid Valve * Normal tricuspid valve structure and function. * Trace tricuspid regurgitation. * No evidence of pulmonary hypertension. Pulmonic Valve * Pulmonic valve is not well visualized. Aorta * Normally sized aortic root. Pericardium * The pericardium appears normal. IVC * Normal IVC dimensions and inspiratory collapse. Pulmonary Artery * Pulmonary artery not well visualized. Consult Discharge Plan - Plan Referrals: Jhon Cárdenas, [Primary Care Provider] - (1) Chest pain Qualifiers: Chest pain type: unspecified Qualified Code(s): R07.9 - Chest pain, unspecified (2) Carotid artery stenosis Qualifiers: Laterality: left Qualified Code(s): I65.22 - Occlusion and stenosis of left carotid artery (3) COPD (chronic obstructive pulmonary disease) Qualifiers: COPD type: unspecified COPD Qualified Code(s): J44.9 - Chronic obstructive pulmonary disease, unspecified
[2019-01-03] MEDS ORDERED: Isosorbide MONOnitrate (24 HR) 30 MG TAB.ER.24H PO SCH (14:00)
--- NOTE | 2019-01-03 14:40 | Discharge Summary ---
- NOTES TO OUTPATIENT PROVIDER Notes to Outpatient Provider: f/u with PCP within a week. f/u with cardiology within 2-3 weeks. Orders not resulted at time of discharge: Pending orders 01/02/19 18:21 NM juarez perf SPECT multi [NM] Routine 01/03/19 06:00 ECG 12 lead ECG [ECG] AM 0600 01/03/19 20:15 Heparin anti-factor XA UFH [COAG] Timed Date of Encounter: 01/03/19 Time of Encounter: 14:35 - Discharge Diagnosis (1) Chest pain Priority: Primary Status: Acute Qualifiers: Chest pain type: unspecified Qualified Code(s): R07.9 - Chest pain, unspecified (2) Carotid artery stenosis Priority: Secondary Status: Chronic Qualifiers: Laterality: left Qualified Code(s): I65.22 - Occlusion and stenosis of left carotid artery (3) COPD (chronic obstructive pulmonary disease) Priority: Secondary Status: Chronic Qualifiers: COPD type: unspecified COPD Qualified Code(s): J44.9 - Chronic obstructive pulmonary disease, unspecified (4) Hypokalemia Priority: Primary Status: Resolved (5) History of coronary artery disease Priority: Secondary Status: Chronic (6) Tobacco use Priority: Secondary Status: Chronic Hospital course: Ms. Phillips is a 58 year old [facility] history of hypertension CAD with stent placement 2013 LAD hyperlipidemia hypertension current smoker thyroid disease COPD left CEA in 2018 patient has been experiencing intermittent left arm squeezing for the past few days pain does radiate to her left chest. No shortness of breath no nausea no vomiting however she has been experiencing episodes of diaphoresis which she attributed to her menopause. She states that she does have a outpatient stress test scheduled and did see her primary care provider today who obtained EKG and was concerned advised her to go to the ER. The ER EKG was obtained which did show some ST depression in II, III, and F aVF. She has been admitted for further work be evaluation of chest pain. Serial troponin was negative. Echocardiogram showed ejection fraction 65% with mild LV DD, no wall motion abnormalities was reported. Also underwent stress nuclear stress test which was negative for ischemia or infarct. Cardiology was consulted, Imdur was added to better control blood pressure. Patient is discharged home today, she will follow-up with PCP and cardiology as scheduled. Discharge discussed with: patient Time spent discussing smoking cessation with patient: more than 10 minutes - Time Spent with Patient Total time spent providing and/or coordinating discharge services: Time spent: Greater than 30 minutes - Discharge Medications Prescriptions: New Isosorbide MONOnitrate (24 HR) [Imdur] 30 mg PO DAILY #30 tab.er.24h Continued Albuterol Sulfate [Ventolin Hfa] 2 puff IH Q4H PRN PRN Reason: Shortness Of Breath Aspirin 81 mg PO DAILY Budesonide/Formoterol 160/4.5 [Symbicort 160/4.5] 2 puff IH DAILY Chlorthalidone 12.5 mg PO DAILY DULoxetine [Cymbalta] 30 mg PO DAILY Lisinopril [Zestril] 40 mg PO DAILY Metoprolol XL (24 HR) Succ [Toprol Xl] 25 mg PO DAILY Pantoprazole Sodium [Protonix] 40 mg PO DAILY Rosuvastatin [Crestor] 40 mg PO DAILY Tramadol HCl [Ultram] 50 mg PO TID PRN PRN Reason: Pain Levothyroxine Sodium [Levo-T] 75 mcg PO QAM Metformin HCl [Fortamet] 500 mg PO DAILY Tiotropium [Spiriva] 18 mcg IH DAILY Home Medications: Albuterol Sulfate [Ventolin Hfa] 2 puff IH Q4H PRN 06/26/18 [History] Aspirin 81 mg PO DAILY 06/26/18 [History] Budesonide/Formoterol 160/4.5 [Symbicort 160/4.5] 2 puff IH DAILY 06/26/18 [History] Chlorthalidone 12.5 mg PO DAILY 06/26/18 [History] DULoxetine [Cymbalta] 30 mg PO DAILY 06/26/18 [History] Lisinopril [Zestril] 40 mg PO DAILY 06/26/18 [History] Metoprolol XL (24 HR) Succ [Toprol Xl] 25 mg PO DAILY 06/26/18 [History] Pantoprazole Sodium [Protonix] 40 mg PO DAILY 06/26/18 [History] Rosuvastatin [Crestor] 40 mg PO DAILY 06/26/18 [History] Tramadol HCl [Ultram] 50 mg PO TID PRN 06/26/18 [History] Isosorbide MONOnitrate (24 HR) [Imdur] 30 mg PO DAILY #30 tab.er.24h 01/03/19 [Rx] Levothyroxine Sodium [Levo-T] 75 mcg PO QAM 01/03/19 [History] Metformin HCl [Fortamet] 500 mg PO DAILY 01/03/19 [History] Tiotropium [Spiriva] 18 mcg IH DAILY 01/03/19 [History] Allergies/Adverse Reactions: Allergy/AdvReac Type Severity Reaction Status Date / Time No Known Allergies Allergy Verified 01/03/19 14:19 Date of admission: 01/02/19 16:41 Primary care physician: Jhon Cárdenas DO Consults: 01/02/19 18:47 Consult to Cardiology [CONS] Routine Comment: Consulting Provider: Cardiology Dali Reason for Consult: CP EKG with st depression 2, 3 AVF Time Notified: 18:49 Call Completed: Yes Anticipated date of discharge: 01/03/19 - Constitutional Vitals: Temp Pulse Resp BP Pulse Ox 98.4 F 62 16 107/59 94 01/03/19 11:24 01/03/19 11:24 01/03/19 11:24 01/03/19 11:24 01/03/19 11:24 General appearance: Present: A&O X 3 Exam: PHYSICAL EXAMINATION: GENERAL APPEARANCE: The patient is alert, oriented and in no acute distress. HEENT: Head is normocephalic. The sinuses are nontender. Pupils are equal and reactive. The nares are patent. Oropharynx clear without lesions. NECK: Supple without lymphadenopathy. HEART: Regular rate and rhythm. LUNGS: No crackles or wheezes are heard. ABDOMEN: Soft, nontender, nondistended with good bowel sounds heard. Inguinal area is normal. EXTREMITIES: Without cyanosis, clubbing or edema. NEUROLOGICAL: Gross nonfocal. SKIN: Warm and dry without any rash. - Patient Status Disposition: Home, Self-Care Condition: Fair Functional capacity at discharge: independent ambulation Overall status at discharge: patient is progressing back to baseline - Discharge Instructions Follow Up With: Jhon Cárdenas DO [Primary Care Provider] - - Diet and Activity Activity: increase activity as tolerated Diet: diabetic diet, low fat, low cholesterol, low salt diet
[2019-01-03 15:52] VITALS: BP 115/53
== END 2019-01-03 16:55 | disposition home or self-care (01) ==
LOC: 3BNU 13:25 → EMEROOARM 13:25 → 3BNU 17:38
PROVIDERS: ADMIT Student in an Organized Health Care Education/Training Program; ATTEND Student in an Organized Health Care Education/Training Program

== ENCOUNTER 2021-08-12 20:42 | Inpatient (IN) ==
[2021-08-12] MEDS ORDERED: Ondansetron 4 MG/2 ML VIAL IVP ONE (20:57)
[2021-08-12] MEDS ORDERED: Ipratropium/Albuterol Neb 3 ML IH ONE (20:57)
[2021-08-12] MEDS ORDERED: Acetaminophen 325 MG TABLET PO ONE (20:59)
[2021-08-12 22:14] LABS: Basophils % 0.3 %; Hematocrit 43.4 % (35.3-44.9); Hemoglobin 14.7 g/dL (11.5-15.4); Immature Granulocytes % 0.5 % (0-4); Lymphocytes % 6.6 %; Mean Corpuscular HGB Conc 33.9 g/dL (31.6-35.5); Mean Corpuscular Hemoglobin 30.4 pg (28.0-33.3); Mean Corpuscular Volume 89.7 fL (83.0-100.0); Monocytes # 0.8 K/mcL (0.0-1.3); Monocytes % 5.8 %; Neutrophils # 12.7 K/mcL (1.6-8.9); Platelet Count 313 K/mcL (140-400); Red Blood Count 4.84 M/mcL (3.82-4.97); Red Cell Distribution Width 13.4 % (11.5-14.5); Segmented Neutrophils % 86.8 %; White Blood Count 14.6 K/mcL (4.3-11.1)
[2021-08-12 22:28] LABS: Bilirubin,Urine Negative (Negative); Blood,Urine Moderate (Negative); Clarity,Urine Turbid (Clear); Color,Urine Yellow (Yellow); Glucose,Urine (UA) Normal (Normal); Ketones,Urine Negative (Negative); Leukocyte Esterase,Urine Negative (Negative); Nitrite,Urine Negative (Negative); PH,Urine 6.5 pH Units (5.0-8.0); Protein,Urine 200 mg/dL (Neg-Trace); Squamous Epithelial Cell,Urine Few per hpf (None-Few); WBC,Urine 0-3 per hpf (0-3)
[2021-08-12 22:32] LABS: Alanine Aminotransferase 24 Units/L (7-52); Albumin 4.2 g/dL (3.5-5.7); Albumin/Globulin Ratio 1.2 (1.1-2.2); Alkaline Phosphatase 60 Units/L (34-104); Aspartate Amino Transferase 28 Units/L (13-39); BUN/Creatinine Ratio 22 (6-26); Bilirubin,Direct 0.2 mg/dL (0.0-0.2); Bilirubin,Indirect 0.5 mg/dL (0.0-1.0); Bilirubin,Total 0.7 mg/dL (0.3-1.0); Blood Urea Nitrogen 17 mg/dL (8-23); Calcium 9.4 mg/dL (8.6-10.3); Carbon Dioxide 31 mEq/L (23-29); Chloride 90 mEq/L (98-107); Creatine Kinase 169 Units/L (30-223); Globulin 3.6 g/dL (2.4-3.5); Glucose 207 mg/dL (70-105); Magnesium 2.4 mg/dL (1.6-2.6); Osmolality,Calculated 284 (280-300); Phosphorous 2.6 mg/dL (2.7-4.5); Sodium 133 mEq/L (136-145); Total Protein 7.8 g/dL (6.4-8.9); Troponin I 0.03 ng/mL (< 0.04); eGFR For African Americans > 60 (> 60); eGFR For Non-African Americans > 60 (> 60)
[2021-08-13] MEDS ORDERED: Acetaminophen 325 MG TABLET PO PRN (00:09)
[2021-08-13] MEDS ORDERED: *HR* Promethazine 25 MG/ML VIAL IM PRN (00:09)
[2021-08-13] MEDS ORDERED: Melatonin 3 MG TABLET PO PRN (00:09)
[2021-08-13] MEDS ORDERED: Naloxone 0.4 MG/ML INJ IVP PRN (00:09)
[2021-08-13 00:54] LABS: Basophils % 0.3 %; Hematocrit 40.8 % (35.3-44.9); Hemoglobin 13.5 g/dL (11.5-15.4); Immature Granulocytes % 0.6 % (0-4); Lymphocytes # 0.5 K/mcL (0.6-4.6); Lymphocytes % 4.3 %; Mean Corpuscular HGB Conc 33.1 g/dL (31.6-35.5); Mean Corpuscular Hemoglobin 29.9 pg (28.0-33.3); Mean Corpuscular Volume 90.3 fL (83.0-100.0); Mean Platelet Volume 10.9 fL (9.4-12.4); Monocytes # 0.4 K/mcL (0.0-1.3); Monocytes % 3.4 %; Neutrophils # 9.9 K/mcL (1.6-8.9); Platelet Count 262 K/mcL (140-400); Red Blood Count 4.52 M/mcL (3.82-4.97); Red Cell Distribution Width 13.2 % (11.5-14.5); Segmented Neutrophils % 91.4 %; White Blood Count 10.8 K/mcL (4.3-11.1)
[2021-08-13 01:02] LABS: INR 1.1; Prothrombin Time 12.3 Seconds (9.4-12.1)
[2021-08-13] MEDS ORDERED: Saline Nasal Spray 44 ML BOTTLE NS PRN (01:03)
[2021-08-13] MEDS ORDERED: Chloraseptic Spray 177 ML BOTTLE MM PRN (01:03)
[2021-08-13] MEDS ORDERED: Saliva Stimulant 44.3ml BOTTLE PO PRN (01:03)
[2021-08-13] MEDS ORDERED: Artificial Tears SOLN 15 ML BOTTLE BOTH EYES PRN (01:03)
[2021-08-13 01:08] LABS: Alanine Aminotransferase 22 Units/L (7-52); Albumin/Globulin Ratio 1.2 (1.1-2.2); Alkaline Phosphatase 53 Units/L (34-104); Aspartate Amino Transferase 29 Units/L (13-39); BUN/Creatinine Ratio 22 (6-26); Bilirubin,Total 0.7 mg/dL (0.3-1.0); Blood Urea Nitrogen 16 mg/dL (8-23); Calcium 8.8 mg/dL (8.6-10.3); Carbon Dioxide 28 mEq/L (23-29); Chloride 89 mEq/L (98-107); Globulin 3.4 g/dL (2.4-3.5); Glucose 285 mg/dL (70-105); Magnesium 2.2 mg/dL (1.6-2.6); Osmolality,Calculated 282 (280-300); Phosphorous 2.6 mg/dL (2.7-4.5); Potassium 2.8 mEq/L (3.5-5.1); Sodium 130 mEq/L (136-145); Total Protein 7.4 g/dL (6.4-8.9); eGFR For African Americans > 60 (> 60); eGFR For Non-African Americans > 60 (> 60)
[2021-08-13 01:10] LABS: C-Reactive Protein 189 mg/L (Less than 10); Lactate Dehydrogenase 184 Units/L (140-271)
[2021-08-13 02:57] LABS: Alanine Aminotransferase 24 Units/L (7-52); Albumin 3.9 g/dL (3.5-5.7); Albumin/Globulin Ratio 1.1 (1.1-2.2); Alkaline Phosphatase 58 Units/L (34-104); Aspartate Amino Transferase 31 Units/L (13-39); BUN/Creatinine Ratio 20 (6-26); Bilirubin,Total 0.7 mg/dL (0.3-1.0); Blood Urea Nitrogen 16 mg/dL (8-23); Calcium 8.9 mg/dL (8.6-10.3); Carbon Dioxide 30 mEq/L (23-29); Chloride 90 mEq/L (98-107); Globulin 3.6 g/dL (2.4-3.5); Glucose 367 mg/dL (70-105); Osmolality,Calculated 290 (280-300); Potassium 2.9 mEq/L (3.5-5.1); Sodium 132 mEq/L (136-145); Total Protein 7.5 g/dL (6.4-8.9); eGFR For African Americans > 60 (> 60); eGFR For Non-African Americans > 60 (> 60)
[2021-08-13] MEDS ORDERED: Remdesivir 200 MG in 0.9 % Sodium Chloride 100 ML IVPB ONE (03:00)
[2021-08-13] MEDS ORDERED: Dextrose Gel 15 GM/37.5 ML TUBE PO PRN ×2 (05:45)
[2021-08-13] MEDS ORDERED: *HR* Dextrose 50 % in Water (Syg) 50 ML SYRINGE IVP PRN (05:45)
[2021-08-13] MEDS ORDERED: D5% in Water 1,000 ML IVC PRN (05:45)
[2021-08-13] MEDS: *HR* Enoxaparin 40 MG/0.4 ML SYRINGE SQ SCH (06:39)
[2021-08-13 06:48] LABS: Chol/HDL Ratio 2.9 (0-4.9)
[2021-08-13 06:57] LABS: Thyroid Stimulating Hormone 5.896 mcIU/mL (0.340-5.600)
[2021-08-13] MEDS ORDERED: Budesonide/Formoterol 160/4.5 1 PUFF INH IH ONE (08:11)
[2021-08-13] MEDS: Ipratropium 1 PUFF INHALER IH SCH ×6 (08:15→23:55)
[2021-08-13] MEDS: Budesonide/Formoterol 160/4.5 1 PUFF INH IH SCH ×2 (08:15→20:08)
[2021-08-13] MEDS: Chlorhexidine Rinse 15 ML MOUTHWASH MM SCH ×2 (10:10→21:30)
[2021-08-13] MEDS: Multivit/Ca/Min/Fe/FA 1 TAB TABLET PO SCH (10:10)
[2021-08-13] MEDS: Insulin LISPRO 300 UNITS/3 ML VIAL SUBQ SCH ×3 (10:10→16:33)
[2021-08-13] MEDS: Cholecalciferol (D-3) 1,000 UNIT (25MCG) TABLET PO SCH (10:10)
[2021-08-13] MEDS: Insulin DETEMIR 100 UNIT/ML X5UNITS SUBQ SCH (10:10)
[2021-08-13] MEDS: Furosemide 20 MG/2 ML VIAL IVP SCH (10:11)
[2021-08-13 10:47] LABS: Estimated Average Glucose 143 mg/dl; Hemoglobin A1C 6.6 %
[2021-08-13 17:13] LABS: Ferritin 134 ng/mL (10-120)
[2021-08-13] MEDS ORDERED: Nitroglycerin 0.4 MG TAB.SUBL SL PRN (17:20)
[2021-08-13] MEDS: Sucralfate 1 GM TABLET PO SCH (21:30)
[2021-08-13] MEDS: *HR* HYDROcodone/Acet 5/325 mg TABLET PO PRN (23:43)
[2021-08-14 01:29] LABS: Alanine Aminotransferase 46 Units/L (7-52); Albumin 3.8 g/dL (3.5-5.7); Albumin/Globulin Ratio 1.1 (1.1-2.2); Alkaline Phosphatase 59 Units/L (34-104); Aspartate Amino Transferase 48 Units/L (13-39); BUN/Creatinine Ratio 32 (6-26); Bilirubin,Total 0.3 mg/dL (0.3-1.0); Blood Urea Nitrogen 20 mg/dL (8-23); Calcium 9.3 mg/dL (8.6-10.3); Carbon Dioxide 29 mEq/L (23-29); Chloride 98 mEq/L (98-107); Globulin 3.4 g/dL (2.4-3.5); Glucose 142 mg/dL (70-105); Osmolality,Calculated 289 (280-300); Potassium 3.6 mEq/L (3.5-5.1); Sodium 137 mEq/L (136-145); Total Protein 7.2 g/dL (6.4-8.9); eGFR For African Americans > 60 (> 60); eGFR For Non-African Americans > 60 (> 60)
[2021-08-14] MEDS: Remdesivir 100 MG in 0.9 % Sodium Chloride 100 ML IVPB SCH (01:30)
[2021-08-14] MEDS: Ipratropium 1 PUFF INHALER IH SCH ×5 (04:12→19:43)
[2021-08-14] MEDS: *HR* Enoxaparin 40 MG/0.4 ML SYRINGE SQ SCH (05:22)
[2021-08-14] MEDS: Insulin LISPRO 300 UNITS/3 ML VIAL SUBQ SCH ×3 (07:37→16:12)
[2021-08-14] MEDS: Insulin DETEMIR 100 UNIT/ML X5UNITS SUBQ SCH (08:31)
[2021-08-14] MEDS: Metoprolol XL (24 HR) Succ 25 MG TAB.ER.24H PO SCH (08:34)
[2021-08-14] MEDS: Isosorbide MONOnitrate (24 HR) 30 MG TAB.ER.24H PO SCH (08:34)
[2021-08-14] MEDS: Aspirin 81 MG TAB.CHEW PO SCH (08:34)
[2021-08-14] MEDS: Multivit/Ca/Min/Fe/FA 1 TAB TABLET PO SCH (08:34)
[2021-08-14] MEDS: Chlorhexidine Rinse 15 ML MOUTHWASH MM SCH ×2 (08:35→21:06)
[2021-08-14] MEDS: Sucralfate 1 GM TABLET PO SCH ×2 (08:35→21:06)
[2021-08-14] MEDS: Cholecalciferol (D-3) 1,000 UNIT (25MCG) TABLET PO SCH (08:35)
[2021-08-14] MEDS: Furosemide 20 MG/2 ML VIAL IVP SCH (08:36)
[2021-08-14] MEDS: Budesonide/Formoterol 160/4.5 1 PUFF INH IH SCH ×2 (08:40→19:45)
[2021-08-14] MEDS: *HR* HYDROcodone/Acet 5/325 mg TABLET PO PRN (21:13)
[2021-08-15] MEDS: Ipratropium 1 PUFF INHALER IH SCH ×4 (00:08→11:46)
[2021-08-15] MEDS: Remdesivir 100 MG in 0.9 % Sodium Chloride 100 ML IVPB SCH (01:33)
[2021-08-15 03:08] LABS: Alanine Aminotransferase 36 Units/L (7-52); Albumin 3.4 g/dL (3.5-5.7); Albumin/Globulin Ratio 1.2 (1.1-2.2); Alkaline Phosphatase 54 Units/L (34-104); Aspartate Amino Transferase 28 Units/L (13-39); BUN/Creatinine Ratio 41 (6-26); Bilirubin,Total 0.3 mg/dL (0.3-1.0); Blood Urea Nitrogen 24 mg/dL (8-23); Calcium 8.5 mg/dL (8.6-10.3); Carbon Dioxide 30 mEq/L (23-29); Chloride 96 mEq/L (98-107); Globulin 2.8 g/dL (2.4-3.5); Glucose 100 mg/dL (70-105); Osmolality,Calculated 284 (280-300); Potassium 3.2 mEq/L (3.5-5.1); Sodium 135 mEq/L (136-145); Total Protein 6.2 g/dL (6.4-8.9); eGFR For African Americans > 60 (> 60); eGFR For Non-African Americans > 60 (> 60)
[2021-08-15] MEDS: *HR* Enoxaparin 40 MG/0.4 ML SYRINGE SQ SCH (05:08)
[2021-08-15] MEDS: Insulin LISPRO 300 UNITS/3 ML VIAL SUBQ SCH ×2 (07:30→12:38)
[2021-08-15] MEDS: Aspirin 81 MG TAB.CHEW PO SCH (07:48)
[2021-08-15] MEDS: Chlorhexidine Rinse 15 ML MOUTHWASH MM SCH (07:48)
[2021-08-15] MEDS: Multivit/Ca/Min/Fe/FA 1 TAB TABLET PO SCH (07:48)
[2021-08-15] MEDS: Metoprolol XL (24 HR) Succ 25 MG TAB.ER.24H PO SCH (07:49)
[2021-08-15] MEDS: Cholecalciferol (D-3) 1,000 UNIT (25MCG) TABLET PO SCH (07:49)
[2021-08-15] MEDS: Isosorbide MONOnitrate (24 HR) 30 MG TAB.ER.24H PO SCH (07:49)
[2021-08-15] MEDS: Furosemide 20 MG/2 ML VIAL IVP SCH (07:49)
[2021-08-15] MEDS: Budesonide/Formoterol 160/4.5 1 PUFF INH IH SCH (07:49)
[2021-08-15] MEDS: Sucralfate 1 GM TABLET PO SCH (07:50)
[2021-08-15] MEDS: Insulin DETEMIR 100 UNIT/ML X5UNITS SUBQ SCH (07:55)
[2021-08-15 14:32] VITALS: BP 119/96; PULSE 89; TEMP 98.7; O2SAT 91
== END 2021-08-15 15:33 | disposition home or self-care (01) | DRG 137 ==
LOC: EMEROOARM 20:42 → 3BNU 20:42 → SUATTDRO 22:57 → 3BNU 23:24 → SUATTDRO 08-13 13:59
PROVIDERS: ADMIT Family Medicine; ATTEND Internal Medicine